=== PATIENT | male | born 1995 | race African-American/Black ===

== ENCOUNTER 2019-05-06 15:53 | Emergency (ER) | payer OTHER ==
--- NOTE | 2019-05-06 17:15 | RAD REPORT ---
EXAM DESCRIPTION: US - Scrotum Testicles - 05/06/2019 5:08 pm CLINICAL HISTORY: Left-sided scrotal/ testicular pain COMPARISON: None. FINDINGS: No intratesticular mass lesions are identifiable. On Doppler evaluation, blood flow was se en in the right testicle. On the left testicle neither power Doppler nor color Doppler could demonstr ate blood flow in the left testicle. Left testicle is similar in size to the right. No intratesticula r edematous changes are seen. Prominent fatty tissue is seen superior to the left testicle possibly from an inguinal hernia. No bow el seen. Each epididymis is normal in size. Small hydroceles are present. Findings telephoned to the referring clinician 5:04 p.m.. IMPRESSION: Suspected left testicular torsion. No blood flow could be demonstrated in the left testi shy. No focal left testicular mass or edema seen. Prominent fatty tissue seen superior to the left testicl e possibly from inguinal hernia.
[2019-05-06 17:38] LABS: Absolute Lymphocytes (CBC) 0.9 K/uL (0.7-4.9); Basophils % 0.2 % (0-1.3); Lymphocytes % 5.5 % (15.3-44.8)
[2019-05-06 17:53] LABS: Potassium 4.3 mmol/L (3.5-5.1)
--- NOTE | 2019-05-06 18:30 | ER ---
Nurse's Notes [facility] Name: Yehuda Talley Age: 24 yrs Sex: Male : 1995 Arrival Date: 05/06/2019 Time: 15:54 Bed 30 Private MD: Diagnosis: Torsion of testis-left;Elevated white blood cell count Presentation: 05/06 15:55 Presenting complaint: Patient states: left testicular pain and a little swelling that sg started 2-3 days ago, denies any trauma or injury, denies drainage or pain with urination, denies blood in urine at this time pt reports that he noticed swelling in the veins, the veins felt hard when touched this morning. Transition of care: patient was not received from another setting of care. Onset of symptoms was May 06, 2019. Risk Assessment: Do you want to hurt yourself or someone else? Patient reports no desire to harm self or others. Initial Sepsis Screen: Does the patient meet any 2 criteria? No. Patient's initial sepsis screen is negative. Does the patient have a suspected source of infection? No. Patient's initial sepsis screen is negative. Care prior to arrival: None. 15:55 Method Of Arrival: Law Enforcement: [place] [employer] sg 15:55 Acuity: TYRA 3 sg Historical: - Allergies: 15:58 No Known Allergies; sg - Home Meds: 17:53 None [Active]; sg - PMHx: 15:58 None; sg - PSHx: 17:53 None; sg - Immunization history:: Adult Immunizations up to date. - Social history:: Smoking status: Patient/guardian denies using tobacco. - Ebola Screening: : Patient negative for fever greater than or equal to 101.5 degrees Fahrenheit, and additional compatible Ebola Virus Disease symptoms Patient denies exposure to infectious person Patient denies travel to an Ebola-affected area in the 21 days before illness onset No symptoms or risks identified at this time. Screenin:00 Abuse screen: Denies threats or abuse. Denies injuries from another. Nutritional sg screening: No deficits noted. Tuberculosis screening: No symptoms or risk factors identified. Never had TB. Fall Risk None identified. Assessment: 16:00 General: Appears in no apparent distress. well groomed, well developed, well nourished, sg Behavior is calm, cooperative, appropriate for age. Pain: Complains of pain in left testicle Pain does not radiate. Quality of pain is described as aching. Neuro: Level of Consciousness is awake, alert, obeys commands, Oriented to person, place, time. Cardiovascular: Patient's skin is warm and dry. Chest pain is denied. Respiratory: Airway is patent Respiratory effort is even, unlabored, Respiratory pattern is regular, symmetrical. GI: Abdomen is flat, non-distended, Reports normal bowel habits, tolerance of fluids, tolerance of food. : Genitalia appear normal Swelling noted on scrotum Reports pain in left scrotum, testicle. EENT: No signs and/or symptoms were reported regarding the EENT system. Derm: Skin is intact, is healthy with good turgor, Skin is dry, Skin is normal, Skin temperature is warm. Musculoskeletal: Circulation, motion, and sensation intact. Range of motion: intact in all extremities. 17:00 Reassessment: Patient appears in no apparent distress at this time. Patient and/or sg family updated on plan of care and expected duration. Pain level reassessed. Patient is alert, oriented x 3, equal unlabored respirations, skin warm/dry/pink. 18:07 Reassessment: Patient appears in no apparent distress at this time. Patient is alert, sg oriented x 3, equal unlabored respirations, skin warm/dry/pink. awating acceptance from receiving facility at this time, pt stated understanding. 19:37 Reassessment: Patient appears in no apparent distress at this time. guards at bedside. ss Awaiting transportation receiving facility. 21:02 Reassessment: Patient appears in no apparent distress at this time. No changes from ss previously documented assessment. Patient and/or family updated on plan of care and expected duration. Pain level reassessed. 21:02 Reassessment: Awaiting for transportation to arrive. Respiratory: Respiratory effort is ss even, unlabored. Vital Signs: 15:57 BP 161 / 71; Pulse 98; Resp 18; Temp 99.3; Pulse Ox 99% on R/A; Pain 7/10; sg 16:50 BP 160 / 70; Pulse 90; Resp 17; Pulse Ox 100% on R/A; sg 17:50 BP 142 / 70; Pulse 72; Resp 17; Pulse Ox 99% ; Pain 7/10; sg 17:54 Weight 86.18 kg (R); sg 21:02 Resp 16; ss ED Course: 15:54 Patient arrived in ED. sg 15:57 Triage completed. sg 15:58 Joaquina Dial FNP-C is [facility]. kb 15:58 El Elaine MD is Attending Physician. kb 15:58 Arm band placed on. sg 16:04 Tye Mccoy, RN is Primary Nurse. sg 16:04 exam or testicle. sg 16:07 Awaiting: ultrasound at this time. sg 16:07 Patient has correct armband on for positive identification. Placed in gown. Bed in low sg position. Side rails up X2. Pulse ox on. NIBP on. 16:53 Patient moved back from ultrasound. sg 17:09 Scrotum Testicles US In Process Unspecified. EDMS 17:17 initiated a transfer with Sathish from the [facility]. eb 17:28 Missed attempt(s): 20 gauge in left antecubital area. lt1 17:29 Inserted saline lock: 22 gauge in right forearm, using aseptic technique. lt1 17:31 per Gim patient denied at [facility] due to being at capacity. eb 17:47 initiated a transfer with Lindsey from the [facility] transfer center. eb 18:36 administrative approval given by Lindsey Ruth/ anton has been accepted to [facility] ER/ / [facility] has accepted the patient in transfer/ report to be called to [phone]. 21:48 Patient transferred, IV remains in place. ss Administered Medications: No medications were administered Outcome: 18:29 ER care complete, transfer ordered by MD. kb 21:48 Transferred by ground EMS Transfer form completed. X-rays sent w/ patient. Note: Corrina 21:48 Condition: improved 21:48 Instructed on the need for transfer. 21:49 Patient left the ED. ss Signatures: Dispatcher [employer] EDMS Joaquina Dial FNP-C FNP-Tye Jonas, Natalie Mar RN, RN RN Ninoska Sheppard Leah lt1 Corrections: (The following items were deleted from the chart) 16:05 15:55 Presenting complaint: Patient states: left testicular pain and a little swelling sg that started 2-3 days ago, denies any trauma or injury, denies drainage or pain with urination, denies blood in urine at this time sg
--- NOTE | 2019-05-06 18:31 | EDPHYS ---
Physician Documentation [facility] Name: Yehuda Talley Age: 24 yrs Sex: Male : 1995 Arrival Date: 05/06/2019 Time: 15:54 Bed 30 Private MD: ED Physician El Elaine HPI: 05/06 17:10 This 24 yrs old Black Male presents to ER via Law Enforcement with complaints of kb Testicular Pain. 17:10 The patient presents with tenderness, that is mild, that is moderate, of the left kb testicle. Severity of symptoms: At their worst the symptoms were moderate, in the emergency department the symptoms are unchanged. The patient has not experienced similar symptoms in the past. The patient has not recently seen a physician. 17:13 Onset: The symptoms/episode began/occurred 7 hour(s) ago, at 10:00. Modifying factors: kb The symptoms are alleviated by nothing, the symptoms are aggravated by nothing. Associated signs and symptoms: The patient has no apparent associated signs or symptoms. Pt reports left testicular pain and swelling that started at 1000 today. Historical: - Allergies: 15:58 No Known Allergies; sg - Home Meds: 17:53 None [Active]; sg - PMHx: 15:58 None; sg - PSHx: 17:53 None; sg - Immunization history:: Adult Immunizations up to date. - Social history:: Smoking status: Patient/guardian denies using tobacco. - Ebola Screening: : Patient negative for fever greater than or equal to 101.5 degrees Fahrenheit, and additional compatible Ebola Virus Disease symptoms Patient denies exposure to infectious person Patient denies travel to an Ebola-affected area in the 21 days before illness onset No symptoms or risks identified at this time. ROS: 17:09 Constitutional: Negative for fever, chills, and weight loss, Cardiovascular: Negative kb for chest pain, palpitations, and edema, Respiratory: Negative for shortness of breath, cough, wheezing, and pleuritic chest pain, Abdomen/GI: Negative for abdominal pain, nausea, vomiting, diarrhea, and constipation, Back: Negative for injury and pain, MS/Extremity: Negative for injury and deformity, Skin: Negative for injury, rash, and discoloration, Neuro: Negative for headache, weakness, numbness, tingling, and seizure. 17:09 : Positive for testicular pain Exam: 17:09 Constitutional: This is a well developed, well nourished patient who is awake, alert, kb and in no acute distress. Head/Face: Normocephalic, atraumatic. Neck: Trachea midline, no thyromegaly or masses palpated, and no cervical lymphadenopathy. Supple, full range of motion without nuchal rigidity, or vertebral point tenderness. No Meningismus. Chest/axilla: Normal chest wall appearance and motion. Nontender with no deformity. No lesions are appreciated. Cardiovascular: Regular rate and rhythm with a normal S1 and S2. No gallops, murmurs, or rubs. Normal PMI, no JVD. No pulse deficits. Respiratory: Lungs have equal breath sounds bilaterally, clear to auscultation and percussion. No rales, rhonchi or wheezes noted. No increased work of breathing, no retractions or nasal flaring. Abdomen/GI: Soft, non-tender, with normal bowel sounds. No distension or tympany. No guarding or rebound. No evidence of tenderness throughout. Back: No spinal tenderness. No costovertebral tenderness. Full range of motion. Skin: Warm, dry with normal turgor. Normal color with no rashes, no lesions, and no evidence of cellulitis. MS/ Extremity: Pulses equal, no cyanosis. Neurovascular intact. Full, normal range of motion. Neuro: Awake and alert, GCS 15, oriented to person, place, time, and situation. Cranial nerves II-XII grossly intact. Motor strength 5/5 in all extremities. Sensory grossly intact. Cerebellar exam normal. Normal gait. 17:09 : Male external genitalia: swelling: of the left testicle is noted, tenderness, of the left testicle is noted, that is moderate. Vital Signs: 15:57 BP 161 / 71; Pulse 98; Resp 18; Temp 99.3; Pulse Ox 99% on R/A; Pain 7/10; sg 16:50 BP 160 / 70; Pulse 90; Resp 17; Pulse Ox 100% on R/A; sg 17:50 BP 142 / 70; Pulse 72; Resp 17; Pulse Ox 99% ; Pain 7/10; sg 17:54 Weight 86.18 kg (R); sg 21:02 Resp 16; ss MDM: 15:58 Patient medically screened. kb 17:08 Data reviewed: vital signs, nurses notes. Data interpreted: Pulse oximetry: on room air kb is 99 %. Interpretation: normal. ED course: Dr Youngblood called with US report showing testicular torsion. Transfer initiated with [facility] care.. 17:13 Counseling: I had a detailed discussion with the patient and/or guardian regarding: the historical points, exam findings, and any diagnostic results supporting the discharge/admit diagnosis, lab results, radiology results, the need to transfer to another facility. 17:36 ED course: [facility] does not have any available beds at [facility]. Transfer initiated to [facility] due to lack of urology service here. They do not accept prisoners. Transfer initiated to [facility]. 18:04 ED course: No answer at [facility]. Transfer now in process to [facility].. kb 18:28 ED course: Dr Holt accepted pt for transfer to [facility].. kb 21:42 ED course: Still awaiting transport arranged by [facility] at 2130. Called them and asked for update. Their contracted transfer service ([facility]) was still 35 minutes away. I requested that we use EMS since they were now available. [facility] called EMS to transport pt. EMS at bedside to transport pt to [facility]. 12 17:07 Order name: Basic Metabolic Panel; Complete Time: 17:53 kb 05/06 17:07 Order name: CBC with Diff; Complete Time: 19:58 kb 05/06 15:59 Order name: Scrotum Testicles US; Complete Time: 17:26 kb 05/06 17:07 Order name: IV Start; Complete Time: 17:30 kb 05/06 19:50 Order name: CBC Smear Scan; Complete Time: 19:58 EDMS Administered Medications: No medications were administered Disposition: 05/07 07:26 Co-signature as Attending Physician, El Elaine MD I agree with the assessment and kdr plan of care. Disposition: 05/06/19 18:29 Transfer ordered to Other Acute Care Facility. Diagnosis are Torsion of testis - left, Elevated white blood cell count. - Reason for transfer: Higher level of care. - Accepting physician is Dr Holt - [facility]. - Condition is Stable. - Problem is new. - Symptoms are unchanged. Signatures: Dispatcher [employer] EDJoaquina York FNP-C FNP-Ckb Gay, Tye, RN RN sg El Elaine MD MD [facility] Natalie Chavarria, NELI RN ss Corrections: (The following items were deleted from the chart) 05/06 18:04 17:36 ED course: [facility] does not have any available beds at [facility]. Transfer kb initiated to [facility]. They do not accept prisoners. Transfer initiated to [facility]. kb 20:53 17:08 ED course: Dr Youngblood called with US report showing testicular torsion. Transfer kb initiated with managed care.. kb 20:53 17:36 ED course: [facility] does not have any available beds at [facility]. Transfer kb initiated to [facility]. They do not accept prisoners. Transfer initiated to [place]. kb 21:49 18:29 05/06/2019 18:29 Transfer ordered to Other Acute Care Facility. Diagnosis is ss Torsion of testis - left; Elevated white blood cell count. Reason for transfer: Higher level of care. Accepting physician is [facility]. Condition is Stable. Problem is new. Symptoms are unchanged. kb
[2019-05-06 19:49] LABS: Blood Morphology Comment NOT SEEN (NOT SEEN); Platelet Estimate ADEQ; Urine White Blood Cell Casts OK
[2019-05-06 22:15] VITALS: TEMP 99.3
[2019-05-06 22:18] VITALS: BP 142/70; O2SAT 99
== END 2019-05-06 21:49 ==
LOC: ER 15:53
DX: N44.00 Torsion of testis, unspecified (principal); D72.829 Elevated white blood cell count, unspecified
CPT/HCPCS: 36415; 76870; 80048; 85025; 99285